=== PATIENT | male | born 1980 | race Caucasian/White ===

== ENCOUNTER 2024-12-28 17:49 | Emergency (ER) | payer OTHER ==
[2024-12-28 17:56] VITALS: BP 147/96; PULSE 88; RESP 18; TEMP 98.4; BMI 37.9
[2024-12-28] MEDS ORDERED: DIPHTH,PERTUSS(ACELL),TET 0.5 ML DISP.SYRIN IM ONE (19:01)
[2024-12-28] MEDS: DIPHTH,PERTUSS(ACELL),TET 0.5 ML DISP.SYRIN IM ONE (19:06)
[2024-12-28] MEDS: SILVER NITRATE 75% APPLIC STCK 1 PKT EACH TP ONE (19:06)
== END 2024-12-28 19:09 | disposition home or self-care (01) ==
LOC: JERFT 17:49 → JER 17:49 → JERFT 19:09
PROC: 3E0234Z Introduction of Serum, Toxoid and Vaccine into Muscle, Percutaneous Approach (ICD-10-PCS; principal; 2024-12-28)
DX: S61.112A Laceration without foreign body of left thumb with damage to nail, initial encounter (principal); Z23 Encounter for immunization; W26.0XXA Contact with knife, initial encounter
CPT/HCPCS: 90471; 90715; 99284-25